=== PATIENT | male | born 1990 | race African-American/Black ===

== ENCOUNTER 2024-05-27 11:01 | Emergency (ER) | payer BC, MEDICAID, OTHER ==
[~2024-05-27] VITALS: Ht 190.5 cm; Wt 113.6 kg
[2024-05-27] MEDS: LORazepam 2MG/ML-1ML VIAL IV ONE (12:22)
[2024-05-27] MEDS: OLANZapine 5 MG TAB PO ONE ×2 (12:22→13:44)
[2024-05-27 12:39] LABS: Eosinophils # (auto) 0 10 ^3/uL (0-0.8); Mean Corpuscular Volume 87.3 fL (80.0-100.0); Neutrophils # (auto) 9.9 10 ^3/uL (1.6-8.6)
[2024-05-27 12:40] LABS: Basophils # (auto) 0.1 10 ^3/uL (0-0.2); Basophils % (auto) 0.4 % (0.0-2.0); Eosinophils % (auto) 0.1 % (0.0-7.0); Hematocrit 50.8 % (41.0-53.0); Hemoglobin 17.8 g/dL (13.5-17.5); Lymphocytes # (auto) 1.2 10 ^3/uL (0.4-5.4); Lymphocytes % (auto) 9.7 % (10.0-50.0); Mean Corpuscular Hemoglobin 30.5 pg (28.0-32.0); Neutrophils % (auto) 81.8 % (37.0-80.0); Nucleated Red Blood Cells % 0.2 %; Platelet Count (auto) 181 10^3/uL (140-450); Red Blood Cells 5.82 10^6/uL (4.5-5.90); Red Cell Distribution Width 13.4 % (11.8-14.3)
[2024-05-27 13:00] LABS: Acetaminophen < 2.0 UG/ML (10.0-20.0); Salicylate < 3.0 mg/dL (2.8-20.0)
[2024-05-27 13:03] LABS: Alanine Aminotransferase 76 U/L (7-40); Albumin 4.7 g/dL (3.2-4.8); Alkaline Phosphatase 83 U/L (46-116); Anion Gap 13 (5-15); Aspartate Aminotransferase 108 U/L (13-40); BUN/Creatinine Ratio 8.8 (10.0-20.0); Blood Alcohol < 3.0 mg/dL (<10); Blood Urea Nitrogen 12 mg/dL (9-23); Calcium 10.2 mg/dL (8.7-10.4); Carbon Dioxide 18 mmol/L (20-30); Chloride 104 mmol/L (98-107); Glucose 97 mg/dL (74-106); Potassium 3.9 mmol/L (3.5-5.1); Sodium 135 mmol/L (136-145)
[2024-05-27 13:04] LABS: Bilirubin, Total 1.6 mg/dL (0.2-1.0)
[2024-05-27] MEDS: SODIUM CHLORIDE 0.9% 1,000 ML IV ONE (17:42)
[2024-05-28] MEDS: LORazepam 2MG/ML-1ML VIAL IV ONE (00:44)
[2024-05-28 02:07] LABS: Urine Bacteria None Seen /hpf (None Seen)
[2024-05-28 02:23] LABS: Amphetamine Screen, Urine Neg (NEGATIVE); Barbiturate Scree,Urine Neg (NEGATIVE); Benzodiazephine Screen, Urine Neg (NEGATIVE); Cannabinoid Screen, Urine Neg (NEGATIVE); Cocaine Screen, Urine Neg (NEGATIVE); Opiate Scree,Urine Neg (NEGATIVE); Phencyclidine Screen, Urine Neg (NEGATIVE)
[2024-05-28 02:40] LABS: Urine Blood Negative /uL (Negative); Urine Clarity Clear (Clear); Urine Color Yellow (Yellow); Urine Hyaline Cast FEW /lpf (0 - 2); Urine Mucus FEW (None Seen); Urine Protein, UAD 1+ (Negative); Urine Urobilinogen Normal (Negative); Urine WBC 2 /hpf (0 - 3)
[2024-05-28 07:30] VITALS: PULSE 92; RESP 16; O2SAT 96
[2024-05-28] MEDS: LORazepam 0.5 MG TAB PO ONE (08:38)
[2024-05-28] MEDS: LORazepam 0.5 MG TAB PO SCH (21:31)
[2024-05-28] MEDS: OLANZapine 5 MG TAB PO SCH (21:32)
[2024-05-28 21:40] VITALS: RESP 14
[2024-05-29 08:30] VITALS: PULSE 70; RESP 16; O2SAT 99
[2024-05-30 00:41] VITALS: BP 115/66; PULSE 80; RESP 16; TEMP 98; O2SAT 98
== END 2024-05-30 00:41 | disposition short-term general hospital (02) ==
LOC: EDBD 11:01 → ER 11:01
DX: F29 Unspecified psychosis not due to a substance or known physiological condition (principal); F20.9 Schizophrenia, unspecified
CPT/HCPCS: 36415; 80053; 80307; 80320; 80329; 81001; 85025; 93005; 96361; 96374; 96376; 99285; J2060; J7030